=== PATIENT | male | born 1990 | race Caucasian/White ===

== ENCOUNTER 2019-08-31 11:04 | Outpatient (CLI) | payer OTHER ==
--- NOTE | 2019-08-31 12:04 | ULT ---
THYROID ULTRASOUND: Date: 08/31/2019 INDICATION: History of thyromegaly. FINDINGS: The right thyroid lobe measures 1.5 x 4.2 x 1.4 cm. The left thyroid lobe measures 1.5 x 3.6 x 1.4 cm. Thyroid isthmus measures 0.19 cm. No focal thyroid lesion is evident. IMPRESSION: No focal thyroid lesion identified. POS: [facility]
== END 2019-08-31 11:05 | disposition home or self-care (01) ==
LOC: SCSULT 11:04
PROVIDERS: ATTEND Family Medicine
DX: E01.0 Iodine-deficiency related diffuse (endemic) goiter (principal)
CPT/HCPCS: 76536

== ENCOUNTER 2020-10-27 20:52 | Emergency (ER) | payer OTHER, SELFPAY | END 2020-10-27 22:40 | disposition home or self-care (01) | LOC: ERS 20:52 | DX: M25.512 Pain in left shoulder (principal); X50.1XXA Overexertion from prolonged static or awkward postures, initial encounter | CPT/HCPCS: 99283 ==

== ENCOUNTER 2023-02-02 02:19 | Emergency (ER) | payer OTHER, SELFPAY ==
[2023-02-02] MEDS ORDERED: Fluorescein Opthalmic Strip ONE (02:40)
[2023-02-02] MEDS ORDERED: Proparacaine 0.5% Opth 15 ML BOT ONE (02:40)
[2023-02-02] MEDS ORDERED: Lidocaine 1% MPF 2 ML VIAL ONE (02:53)
== END 2023-02-02 03:40 | disposition home or self-care (01) ==
LOC: ERS 02:19
DX: S01.81XA Laceration without foreign body of other part of head, initial encounter (principal); W22.8XXA Striking against or struck by other objects, initial encounter; Y92.000 Kitchen of unspecified non-institutional (private) residence as the place of occurrence of the external cause
CPT/HCPCS: 12011

== ENCOUNTER 2023-04-14 00:05 | Emergency (ER) | payer OTHER | END 2023-04-14 00:40 | LOC: ERS 00:05 | DX: Z00.00 Encounter for general adult medical examination without abnormal findings (principal) | CPT/HCPCS: 99282 ==

== ENCOUNTER 2023-11-05 23:23 | Emergency (ER) | payer OTHER, SELFPAY ==
[2023-11-06] MEDS ORDERED: HYDROcodone/Acetaminophen 10/325 mg Tablet ONE (00:52)
== END 2023-11-06 01:00 | disposition home or self-care (01) ==
LOC: ERS 23:23
DX: S90.32XA Contusion of left foot, initial encounter (principal); V00.131A Fall from skateboard, initial encounter; Y93.51 Activity, roller skating (inline) and skateboarding

== ENCOUNTER 2024-04-09 18:02 | Emergency (ER) | payer SELFPAY | END 2024-04-09 21:15 | disposition left against medical advice (07) | LOC: ERS 18:02 | DX: Z53.21 Procedure and treatment not carried out due to patient leaving prior to being seen by health care provider (principal) ==